=== PATIENT | male | born 1975 | race Caucasian/White ===

== ENCOUNTER 2016-04-10 22:18 | Emergency (ER) | payer OTHER, SELFPAY ==
[2016-04-10] MEDS ORDERED: Ketorolac Tromethamine 30 MG/ML VIAL ONE (22:49)
[2016-04-10] MEDS ORDERED: Cyclobenzaprine 10 MG TAB ONE (22:49)
[2016-04-10 23:01] LABS: #Basophils 0.1 thou/uL (0.0-0.2); #Eosinphils 0.1 thou/uL (0.0-0.7); #Lymphocytes 2.6 thou/uL (1.20-3.40); #Monocytes 0.8 thou/uL (0.11-0.59); #Neutrophils 7.2 thou/uL (1.40-6.50); %Basophils 1.2 % (0.0-1.0); %Eosinophils 0.5 % (0.0-10.0); %Monocytes 7.2 % (0.0-10.0); Hematocrit 46.5 % (42.0-52.0); Mean Platelet Volume 5.6 fL (7.4-10.4); Red Blood Cell (RBC) Count 5.05 mill/uL (4.70-6.10); White Blood Cell (WBC) Count 10.8 thou/uL (4.8-10.8)
[2016-04-10 23:15] LABS: ALT (SGPT) 59 U/L (0-55); AST (SGOT) 26 U/L (5-34); Alkaline Phosphatase 54 U/L (40-150); Anion Gap 14 mmol/L (10-20); BUN (Urea Nitrogen) 12 mg/dL (8.9-20.6); Bilirubin, Total 0.4 mg/dL (0.2-1.2); Calc. Creatinine Clearance 0 mL/min (70-130); Calcium 9.2 mg/dL (7.8-10.44); Carbon Dioxide 24 mmol/L (22-29); Chloride 105 mmol/L (98-107); Estimated GFR-MDRD Greater than 90; Lipase 49 U/L (8-78); Protein, Total 7.2 g/dL (6.0-8.3)
[2016-04-10 23:23] LABS: Troponin I Less than 0.010 ng/mL (< 0.028)
[2016-04-10 23:23] LABS: Bilirubin Negative (Negative); Blood, Urine Negative (Negative); Glucose, Urine (Dipstick) Negative (Negative); Ketone, Urine Negative (Negative); Nitrite Negative (Negative); Protein, Urine (Dipstick) Negative (Neg-Trace); Urobilinogen 0.2 mg/dL (0.2-1.0)
[2016-04-10] MEDS ORDERED: traMADol HCl 50 MG TAB ONE (23:56)
--- NOTE | 2016-04-11 10:57 | CT ---
PRELIMINARY REPORT/[facility]/EMERGENCY AFTER HOURS PROCEDURE: EXAM: CT Abdomen and Pelvis With Intravenous Contrast. CLINICAL HISTORY: 41 years old, male; Pain; Abdominal pain; Flank; Left; Patient HX: History provided by patient, 41m presents to the ed with complaints of left flank that awoke him from sleep this morning, and has bee n present all day. Describes it as sharp stabbing pain that is worse with movement, deep breathing, and coughing TECHNIQUE: Axial computed tomography images of the abdomen and pelvis with intravenous contrast. Coronal reformatted images were created and reviewed. CONTRAST: 96 mL of ISOVUE 370 administered intravenously. COMPARISON: No relevant prior studies available. FINDINGS: The lung bases are clear. The gallbladder is contracted. No visible gallstones by CT. No biliary tree dilation. There is fatty infiltration of the liver. Probable very small right renal cyst. No hydronephrosis of either kidney. No visible ureteral calculus. No perinephric fluid. Unremarkable appearance of the spleen, adrenal glands, and pancreas. No free air, ascites, or bowel distention. No evidence for abdominal aortic aneurysm. No retroperitoneal adenopathy. CT pelvis: The appendix is visualized and appears normal. There are no CT findings to strongly suggest diverticulitis. Small bilateral inguinal hernias, containing only fat, larger on the right. IMPRESSION: No free air or bowel distention. No diverticulitis. No hydronephrosis of either kidney. No visible ureteral calculus. Normal appendix. Other findings discussed above. Thank you for allowing us to participate in the care of your patient. Dictated and Authenticated by: Michoacano Weaver MD 04/10/2016 11:35 PM Central Time ([place] \T\ [place]) FINAL REPORT CT OF THE ABDOMEN AND PELVIS WITH CONTRAST: Date: 04/10/[address] of the abdomen and pelvis was performed for evaluation of left flank pain. Axial slices we re acquired after giving IV contrast. Coronal reconstructions were then done. Oral contrast was with held by request. FINDINGS: No infiltrates or effusions were seen in the visible portions of the lung bases. There may be some m ild fatty infiltration of the liver, but no focal lesions were seen. The spleen, pancreas, adrenal g lands, and aorta show no acute findings. The gallbladder is contracted and cannot be evaluated. The kidneys show no solid mass or hydronephrosis, but there may be a small cyst in the right kidney. The bowel is nondistended. There is no thickening of bowel loops or inflammatory change around them. The appendix appears normal. There is no sign of diverticulitis. No free air or free fluid seen. CT of the pelvis showed no masses, fluid collections, or inflammatory changes. IMPRESSION: No acute abdominal or pelvic findings to explain the patient's pain. There was no evidence of urinar y tract calculi or obstruction. REPORT IN AGREEMENT WITH PRELIMINARY READING BY FRANCISCO. POS: HOME
== END 2016-04-11 00:04 | disposition home or self-care (01) ==
LOC: BURERS 22:18
DX: M62.838 Other muscle spasm (principal); I10 Essential (primary) hypertension; Z79.899 Other long term (current) drug therapy; Z79.84 Long term (current) use of oral hypoglycemic drugs
CPT/HCPCS: 74177; 80053; 81003; 82553; 83690; 84484; 85025; 93005; 96374; J1885

== ENCOUNTER 2016-10-16 11:51 | Outpatient (CLI) | payer OTHER, SELFPAY ==
[2016-10-16 12:48] LABS: #Basophils 0.1 thou/uL (0.0-0.2); #Lymphocytes 2.1 thou/uL (1.20-3.40); #Monocytes 0.4 thou/uL (0.11-0.59); #Neutrophils 5.3 thou/uL (1.40-6.50); %Basophils 0.8 % (0.0-1.0); %Eosinophils 0.5 % (0.0-10.0); %Lymphocytes 26.5 % (21.0-51.0); %Monocytes 5.5 % (0.0-10.0); %Neutrophils 66.6 % (42.0-75.0); Hemoglobin 15.4 g/dL (14.0-18.0); Mean Corpuscular HGB CONC 32.7 g/dL (32.0-36.0); Mean Corpuscular Volume 91.7 fl (80.0-94.0); Mean Platelet Volume 5.5 fL (7.4-10.4); Platelet Count 304 thou/uL (130-400); RBC Distribution Width 12.1 % (11.5-14.5); Red Blood Cell (RBC) Count 5.13 mill/uL (4.70-6.10); White Blood Cell (WBC) Count 7.9 thou/uL (4.8-10.8)
[2016-10-16 12:58] LABS: ALT (SGPT) 54 U/L (8-55); AST (SGOT) 28 U/L (5-34); Albumin 4.6 g/dL (3.5-5.0); Alkaline Phosphatase 71 U/L (40-150); Anion Gap 15 mmol/L (10-20); BUN (Urea Nitrogen) 10 mg/dL (8.9-20.6); Bilirubin, Total 0.5 mg/dL (0.2-1.2); Calc. Creatinine Clearance 0 mL/min (70-130); Calcium 9.3 mg/dL (7.8-10.44); Carbon Dioxide 25 mmol/L (22-29); Cardiac Risk 3.8 (Less than 4.5); Chloride 106 mmol/L (98-107); Cholesterol 150 mg/dl (< 200 Desired); Estimated GFR-MDRD Greater than 90; Globulin 2.5 g/dL (2.4-3.5); Glucose 110 mg/dL (70-105); HDL Cholesterol 39 mg/dL (>60 Neg Risk); LDL Cholesterol, Calculated 87 mg/dL; Potassium 4.3 mmol/L (3.5-5.1); Protein, Total 7.1 g/dL (6.0-8.3); Sodium 142 mmol/L (136-145); Triglycerides 122 mg/dL (Less than 150)
[2016-10-16 13:10] LABS: Hemoglobin A1c 5.9 % (4.0-6.0)
== END 2016-10-16 11:52 | disposition home or self-care (01) ==
LOC: HPCALD 11:51
PROVIDERS: ATTEND Family Medicine
DX: E11.9 Type 2 diabetes mellitus without complications (principal); I10 Essential (primary) hypertension
CPT/HCPCS: 36415; 80053; 80061; 83036; 85025